=== PATIENT | female | born 1940 | race Caucasian/White ===

== ENCOUNTER 2021-06-11 19:16 | Emergency (ER) | payer MEDICARE, BC ==
[~2021-06-11] VITALS: Ht 165.1 cm; Wt 68.2 kg
[2021-06-11 19:19] VITALS: TEMP 98.3
[2021-06-11] MEDS ORDERED: FEMARA PO (19:51)
[2021-06-11] MEDS ORDERED: TENORMIN 5050 MG/TAB PO (19:51)
[2021-06-11] MEDS ORDERED: CRESTOR 10MG10 MG PO (19:52)
[2021-06-11] MEDS ORDERED: ASPIRIN 81M81 MG/TA2 PO (19:52)
[2021-06-11] MEDS ORDERED: CELEXA 20MG20 MG/TAB PO (19:53)
[2021-06-11] MEDS ORDERED: EUTHYROX88 MCG PO (19:53)
[2021-06-11] MEDS ORDERED: PRILOSEC 20MG20 MG PO (19:53)
[2021-06-11] MEDS ORDERED: MIRAPEX0.25 MG PO (19:54)
[2021-06-11] MEDS ORDERED: OSCAL 500 TAB500 MG PO (19:55)
[2021-06-11] MEDS ORDERED: MULTI VITAMINS1 TAB PO (19:55)
[2021-06-11 21:22] VITALS: BP 198/82; PULSE 79
== END 2021-06-11 21:27 | disposition home or self-care (01) ==
LOC: COL.ER 19:16
DX: S09.90XA Unspecified injury of head, initial encounter (principal); W01.198A Fall on same level from slipping, tripping and stumbling with subsequent striking against other object, initial encounter; Y93.01 Activity, walking, marching and hiking